=== PATIENT | male | born 1955 | race Caucasian/White ===

== ENCOUNTER → 2017-10-15 | Outpatient (CLI) | payer OTHER ==
--- NOTE | 2017-10-15 11:30 | RAD ---
EXAM DESCRIPTION: Humerus,Right CLINICAL HISTORY: LOCALIZED SWELLING MASS AND LUMP UNSPECIFIED COMPARISON: None. TECHNIQUE: 2 views right FINDINGS: I see no bone joint or soft tissue abnormality. IMPRESSION: Normal right humerus Electronically signed by: Wilberto Lynn MD 10/15/2017 11:28 AM CDT
== END ==
LOC: RAD 08:22
PROVIDERS: ATTEND Orthopaedic Surgery
DX: R22.9 Localized swelling, mass and lump, unspecified (principal)